=== PATIENT | female | born 1945 | race Caucasian/White ===

== ENCOUNTER 2025-02-28 10:01 | Emergency (ER) | payer MEDICARE, SELFPAY ==
--- NOTE | ~2025-02-28 | XR_ITS ---
EXAMINATION: XR chest 2V DATE: 02/28/2025 10:42 INDICATION: One week of cough TECHNIQUE: PA and lateral views of the chest were obtained. COMPARISON: None FINDINGS: The lungs are clear with no focal airspace opacities, pulmonary edema, pleural effusion or pneumothor ax. The cardiomediastinal silhouette is normal. Mild thoracic spondylosis. IMPRESSION: 1. No acute cardiopulmonary disease. Reviewed, dictated and finalized at location A.
[2025-02-28 10:04] VITALS: BP 166/79; PULSE 80; RESP 16; TEMP 36.9; O2SAT 98
--- OUTSIDE RECORDS SUMMARY | 2025-02-28 10:08 | XMS_ITS | Continuity of Care Document ---
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 Name Role Phone Sandoval Velazquez MD Unavailable Unavailable Allergies, Adverse Reactions, Alerts Substance Reaction Status Criticality cefdinir Active No Information prednisone Active No Information levothyroxine Active No Information PENICILLIN Active No Information clindamycin Active No Information Sulfa (Sulfonamide Antibiotics) Active No Information trimethoprim Active No Information sulfamethoxazole Active No Informat ion Medications Medication Instructions Dosage Effective Dates (start - stop) Status Comments Tirosint 100 mcg capsule take 1 capsule by oral route every day 100 MCG - Active irbesartan 150 mg tablet take 1 tablet by oral route every day 150 MG - Active multivitamin tablet take 1 tablet by ora l route every day 1 tablet - Active Calcium 600 600 mg calcium (1,500 mg) tablet take 1 capsule by oral route 2 times every day 1 capsule - Active omeprazole 40 mg capsule,delayed release take 1 capsule by oral route every day before a meal 40 MG - Active Procedures Procedure Date No Charge Optomap Fundus Photos 022 No Charge Refraction SCODI, Retina Eye Exam & Treatment No Charge Optomap Fundus Photos 021 SCODI, Retina Eye Exam & Treatment Fundus Photography W/ Report No Charge Refraction Eye Exam, New Patient Advance Directives Directive Yes / No Effective Date File Name No Information Encounters Encounter Description Practice Location Reason(s) For Visit Diagnoses Date Provider Providers Copied on Encounter [facility], [address], [place], [place], [id number], [place] tel:[phone] [place] Professional Complete Exam (chief complaint) Age-related nuclear cataract, bilateralEpire tinal membrane (ERM) of right eyeEndothelial corneal dystrophy, right eye Sep-2 2 Velazquez Sandoval. [address], [place], [place], [address], [place]. tel:[phone] Shine Welsh MD.Referri ng Provider: Shine Welsh MD P, [address] [place] [address], [address] . tel:[phone] [facility], [address], [place], [place], [address], [place] tel:[phone] [place] Professional Complete Exam (chief complaint) Epiretinal membrane (ERM) of right eyeAge-related nuclear cataract, bilateralEndot helial corneal dystrophy, right eye Sep-2 1 Marcus Nick. [address], [place], [place], [address], [place]. tel:[phone] Shine Welsh MD.Referri ng Provider: Shine Welsh MD P, [address] [place] [address], [address] . tel:[phone] [facility], [address], [place], [place], [address], [place] tel:[phone] [place] Professional MANAGER PROCUREMENT Complete Exam (chief complaint) Age-related nuclear cataract, bilateralEpire tinal membrane (ERM) of right eyeMacular pseudohole of right eye Sep-1 0 Velazquez Sandoval. [address], [place], [place], [address], [place]. tel:[phone] Specialist : Shine Welsh MD, [address] [place] [address], [address] . tel:[phone] erring Provider: Shine Welsh MD P, [address] [place], [address] . tel:[phone] [facility], [address], [place], [place], [address], tel:[phone] SEC Ori Jansen No Information 0 Marcus Nick. [address] [facility], [address], [place], [place], [address], [place]. tel:[phone] Specialist : Shine Welsh MD, [address] [place], [address] . tel:[phone] Family History Family Member Type Diagnosis Age At Onset Problem Family history of Diabetes m chidi Payers Payer name Insurance type Covered alliance party ID Authorrandy reillymelissa(s) [facility] Mdcr Adv CI [id number] Social History Type Description Quantity Date Captured Comments Alcohol Use Details Caffeine Use Details Tobacco Use Status Current non-smoker Smoking Status Never smoker Non-Smoking Tobacco Use Details : No Details Available : No Details Available Sex Female Chief Complaint And Reason For Visit From encounter dated '07/04/2022 10:30'. Complete Exam (chief complaint). Description: The 76 year old patient presents for a complete exam ou. Monitoring cataracts ou and ERM w/mac pseudohole OD. Patient sees Dr. Welsh every year and seenhim in February 2022. Patient states she goes to [place] for the winter. Patient has a hard time seeing road signs. Patient thinks she wants to wait until Spring for CE. Patient is just unsure. Reason For Referral Reason For Referral No Information Plan Of Treatment Date Type Action Status Patient Education The Eye: Anatomy Sketch completed Patient Education Cataracts: Care Instruc tions completed Patient Education Cataracts: Care Instruc tions completed History Of Present Illness Encounter Date Complaint History Of Prese nt Illness Complete Exam The 76 year old patient presents for a complete exam ou. Monitoring cataracts ou and ERM w/mac pseudohole OD. Patient sees Dr. Welsh every year and seen him in February 2022. Patient states she goes to [place] for the winter. Patient has a hard time seeing road signs. Patient thinks she wants to wait until Spring for CE. Patient is just unsure. Complete Exam The 75 year old female presents for evaluation of Complete Exam in the right eye and left eye. Hx of ERM w/Mac pseudohole OD. Patient states awhile back when she woke up from sleeping her left eye was stuck to her eyeball . Patient states she still sees humps under letters with the right eye. Patient using Systane prn OU. Patient seen Dr. Welsh yesterday. MANAGER PROCUREMENT Complete Exam The 74 year old female presents for evaluation of MANAGER PROCUREMENT Complete Exam in the right eye and left eye. Hx Cataract OU. Pt reports trouble seeing the computer in her current progressive lenses. Pt uses Naphcon A prn OU. Pt would like a new MRx today. Pt was followed by Dr. Welsh before she moved here for possible VMT. Functional Status Date Functional Assessmen t No Information Instructions Date Instruction Additional Infor brielle Impression/Plan Impression/Plan Impression/Plan Assessments Type Assessment Date assessment Age-related nuclear cataract, bi lateral assessment Epiretinal membrane (ERM) of rig ht eye assessment Endothelial corneal dystrophy, r ight eye Patient Care Teams Name Effective Dates (start - stop) Status Members No Information
--- OUTSIDE RECORDS SUMMARY | 2025-02-28 10:09 | XMS_ITS | Clinical Summary ---
Author Organization [facility] Address [address] [place] [address] Care Team Providers Care Machine Mover Name Role Phone Dillon Nunez MD Primary Care Provide r Source Comments [facility],non-owned Affiliates and Associated Physician Practices is amultiple site organization consisting of ambulatory clinics and hospital sitesin [place], [place], [place] and [place]. This disclosure is being madepursuant to the Care Everywhere program and may not contain all information available regarding this patient. Last updated 18.[facility] Allergies Active Allergy Reactions Criticality Noted Date Comments Sulfamethoxazole W-Trimethoprim 06/08 Clindamycin 06/20/2017 Levofloxacin 06/20/2017 Penicillins 06/20/2017 Prednisone 06/20/2017 Sulfa Drugs 06/20/2017 Medications * Be aware that medications may not be up to date on this document. Alwaysverify current medications with the patient. levothyroxine (SYNTHROID) 75 MCG tablet Take 100 mcg by mouth daily before breakfast Active valsartan (DIOVAN) 160 MG tablet Take 160 mg by mouth once daily Active aspirin (ASPIRIN) 81 MG chew tablet Take 81 mg by mouth once daily Active omeprazole (PRILOSEC) 40 MG capsule Take 40 mg by mouth daily before breakfast Active irbesartan (AVAPRO) 150 MG tablet Take 150 mg by mouth once daily Active valACYclovir (VALTREX) 1 GM tablet Take 1,000 mg by mouth every 12 hours Active diclofenac sodium EC (VOLTAREN) 50 MG tablet Take 50 mg by mouth 2 times daily Active Active Problems Problem Noted Date Diagnosed Date Right knee pain 06/20/2017 Social History Tobacco Use Types Packs/Day Years Used Date Smoking Tobacco: Never Assessed Comments Unknown Sex and Gender Information Value Date Recorded Sex Assigned at Not on file 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 Gender Identity Not on file Sexual Orientation Not on file Plan of Treatment Health Maintenance Due Date Last Done Comments BONE DENSITY TESTING 1945 DTAP/TDAP/TD VACCINES (1 - Tdap) 1964 PNEUMOCOCCAL VACCINE 50+ (1 of 1 - PCV) 1995 ZOSTER VACCINE (1 of 2) 1995 Respiratory Syncytial Virus (RSV) Vaccine Pt: or over 60 yrs (1 - 1-dose 75+ series) 2020 COVID-19 VACCINE (1 - season) 2024 DEPRESSION SCREENING 10/08/2024 INFLUENZA VACCINE (Season Ended) 2025 08/04/2019, 09/22/2016, 07/16/2014, Additional history exists HEPATITIS B VACCINE Aged Out No longe r eligible based on patient's age to complete this topic HIB VACCINE Aged Out No longer eligi ble based on patient's age to complete this topic HPV VACCINE Aged Out No longer eligi ble based on patient's age to complete this topic MENINGOCOCCAL (Group B) VACCINE SHARED DECISION-MAKING Aged Out No longer eligible based on patient's age to complete this topic MENINGOCOCCAL GROUPS A/C/Y/W VACCINE Aged Out No longer eligible based on patient's age to complete this topic Insurance MANAGED MEDICARE ADV Care Teams Machine Mover Relationship Specialty Start Date End Date Dillon Nunez MD [address] [place] [address] PCP - General Pediatrics 06/20/17
--- OUTSIDE RECORDS SUMMARY | 2025-02-28 10:09 | XMS_ITS | Clinical Summary ---
Author Organization [facility] Address [address] [place] [id number] Care Team Providers Care Pool Attendant Name Role Phone Shine Redd MD Primary Care Provider [phone] Dillon Wang MD Unavailable [phone] Beltran Oliva MD Unavailable [phone] Allergies Active Allergy Reactions Criticality Noted Date Comments Azithromycin Rash Medium 01/12/2017 Cefdinir Diarrhea Low 09/02/2019 Clindamycin Rash Medium 01/12/2017 Levofloxacin Rash Medium 01/12/2017 Penicillins Rash Medium 01/12/2017 Prednisone Rash Medium 06/20/2017 Sulfa (Sulfonamide Antibiotics) Rash Medium 06/08 Sulfamethoxazole-Trimethoprim Rash Medium 2016 Medications multivitamin tablet,chewable Take by mouth Active aspirin 81 mg enteric coated tablet Take 1 tablet (81 mg total) by mouth daily 90 tablet 3 2 Active bran/gum/fib/ce l/psyl/kelp/pec (FIBER 6 ORAL) Take by mouth A ctive famotidine-Ca carb-mag hydrox (PEPCID COMPLETE) 10-800-165 mg chewable tablet Take 1 tablet by mouth daily as needed for heartburn Active calcium carbonate-vitam in D3 1,500 mg (600 mg elemental)-1,00 0 unit capsule Take by mouth daily Active ascorbic acid/collagen hydr (COLLAGEN SKIN RENEWAL ORAL) Take by mouth daily Active docusate sodium (COLACE) 100 mg capsuleIndicati ons:constipatio n Take 1 capsule (100 mg total) by mouth 2 (two) times a day with a glass of water 20 capsule 3 Active levothyroxine (SYNTHROID) 100 mcg tablet TAKE 1 TABLET BY MOUTH EVERY MORNING BEFORE BREAKFAST 90 tablet 3 4 Active losartan (COZAAR) 50 mg tablet Take 1 tablet (50 mg total) by mouth daily 90 tablet 4 5 10/28/19 26 Active Active Problems Problem Noted Date Diagnosed Date Medicare annual wellness visit, subsequent 09/26 Assessment & Plan (09/26/2024 10:40 AM WELDING MANAGER): In regard to health maintenance, Mammogram- declined DEXA- UTD Influenza vaccine- given at appointment Pneumococcal vaccine- UTD Shingrix vaccine- declined ASCVD risk: 32.4% Eat a healthy diet: focus on lean meats and proteins, more fruits, vegetables and whole grains and low in sugars and fats. Limit red meat and avoid processed meat. Maintain a healthy weight; avoid being overweight. Aim for a normal body mass index (BMI) of 18.5-24.9. Help learning to eat healthier, we can set up appointment with director of sustainable design/supervisor game farm. Have an active lifestyle, strive for 30 minutes of moderate exercise 5 times a week and strength or resistance training at least twice a week. Use broad-spectrum (UVA+UVB) sunscreen with SPF 30 or greater, is water resistant, limit time spent in the sun (10 am-4pm), wear hat, wear UV protective clothing, wear sunglasses. Never use a tanning bed. Skin that was irradiated may be more sensitive over your lifetime. Limit alcohol intake, 1 drink per day for a woman and 2 drinks per day for a man. BMI 27.0-27.9,adult 09/26/2024 Assessment & Plan (09/26/2024 10:39 AM WELDING MANAGER): Weight appropriate for patient. Need for immunization against influenza 09/26/20 Assessment & Plan (09/26/2024 10:40 AM WELDING MANAGER): Flu vaccine given at appointment. Varicose veins of left lower extremity with pain 07/26/2022 Assessment & Plan (03/24/2024 4:29 PM CDT): Stable, improved; no current symptoms except for cosmetic Will continue to monitor Assessment & Plan (10/16/2023 3:40 PM WELDING MANAGER): Has improvement since coagulation; decreased pain and swelling in left leg Will continue to monitor, encourage use of compression stockings as needed Assessment & Plan (03/30/2023 10:02 AM CDT): Completed treatment; has some tearing higher up but no edema in left leg Continue to monitor Assessment & Plan (02/20/2023 7:52 AM CDT): Status post EVLT and stab phlebectomies, doing well since her procedure. Her phlebectomy sites are healing nicely. Continue p.r.n. compression therapy. Can follow-up as needed. Assessment & Plan (10/05/2022 12:05 PM WELDING MANAGER): Impression: Patient continues to complain of left lower extremity pain and edema with prolonged standing despite compression therapy. Venous reflux reveals significant reflux to bilateral great saphenous femoral junction. Plan: Recommend left lower extremity EVLT with stab phlebectomies. Risks of the procedure communicate with patient to include infection, bleeding, laser burn injury, DVT, or needing further surgery. Patient understands these risks and wishes to proceed. Recommend patient to continue utilizing compression stockings. Assessment & Plan (09/13/2022 11:09 AM WELDING MANAGER): Left lower extremity CEAP C3 disease symptomatic varicosities I discussed the importance of compression therapy. We will follow up in 1 2 weeks with left lower extremity reflux miner assistant, pending this she is likely going to need a GSV ablation stab phlebectomies. Assessment & Plan (07/26/2022 5:04 PM CDT): Stable, not well controlled; has symptoms including swelling and pain associated with vein in left leg; using compression stocks Continue with compression stockings, referral to vascular surgery for symptomatic varicose vein Family history of colon cancer in father 021 History of colon polyps 10/12/2020 Prediabetes 10/12/2020 Assessment & Plan (09/26/2024 10:39 AM WELDING MANAGER): CMP and A1C ordered. Will continue to monitor. Assessment & Plan (03/30/2023 10:02 AM CDT): Last CMP, serum glucose was 101; no major issues Encouraged continued low-carbohydrate diet; limiting carbohydrates to 30 to 45 g per meal Elevated LFTs 09/22/2019 Osteoarthritis of multiple joints 09/22/2019 Assessment & Plan (03/24/2024 4:28 PM CDT): Not well controlled, worsening pain impacting sleep; worse when being knee for extended duration Worse sandals, can not straighten [place] Has decreased range of motion Continue to follow with Orthopedic surgery for evaluation and treatment options Assessment & Plan (10/16/2023 3:41 PM WELDING MANAGER): Continues to have pain; mostly knees and lower back; follows with lawn caretaker for management Assessment & Plan (03/30/2023 10:03 AM CDT): Generally well controlled, can perform most major activities, including caring for long caring for grandchild Continue to encourage regular general activity; ibuprofen and Tylenol p.r.n. for pain Hemorrhoids 09/30/2018 Assessment & Plan (03/30/2023 10:04 AM CDT): Not well controlled, has bleeding; symptoms have been present for several years, requires pad every 24 hours changes pen often Pain with sitting Refer to general surgery for evaluation Assessment & Plan (07/26/2022 5:05 PM CDT): Not well controlled, has regular bleeding and secretions; requiring pads all the time Has increased fiber intake, symptoms of present for several years but progressing, patient reports no significant constipation with regular bowel movements Continue with high-fiber diet; will refer to general surgery if no improvement in symptoms Mixed hyperlipidemia 09/30/2018 Assessment & Plan (09/26/2024 10:38 AM WELDING MANAGER): Lipid panel ordered. Will continue to monitor. Stable and well controlled. Continue high-fiber and low-fat diet. Assessment & Plan (03/24/2024 4:28 PM CDT): Stable, well controlled, last lipids and optimal ranges; continue high-fiber low-fat diet Assessment & Plan (10/16/2023 3:41 PM WELDING MANAGER): Stable, well controlled; lipids and optimal range Encourage low-fat high-fiber diet Assessment & Plan (03/30/2023 10:06 AM CDT): Stable, well controlled; no major issues ASCVD risk score is 35.1%; would consider starting statin therapy if remains elevated Continue to monitor encourage low-fat high-fiber diet Assessment & Plan (10/05/2022 12:06 PM WELDING MANAGER): Impression: Chronic hyperlipidemia, controlled with statin therapy. Plan: Continue statin therapy as per primary care provider. Assessment & Plan (09/13/2022 11:09 AM WELDING MANAGER): Recommend statin therapy Assessment & Plan (07/26/2022 5:03 PM CDT): Elevated total cholesterol with near optimal LDL Continue to monitor, encourage low-fat high-fiber diet Gastroesophageal reflux disease without esophagi tis 04/03/2016 Overview (07/17/2022): Gastro-esophageal reflux disease without esophagitis Assessment & Plan (09/26/2024 10:38 AM WELDING MANAGER): Stable and well controlled. Will continue on Pepcid complete. Will continue to monitor. Assessment & Plan (10/16/2023 3:40 PM WELDING MANAGER): Continues to have some symptoms; takes Pepcid for several weeks Continue Pepcid complete p.r.n. for symptoms Assessment & Plan (03/30/2023 10:04 AM CDT): Stable, well controlled, takes Pepcid every night with good relief Continue famotidine 10 mg daily Benign essential hypertension 02/23/2012 Overview (07/17/2022): Benign essential hypertension Assessment & Plan (09/26/2024 10:37 AM WELDING MANAGER): Blood pressure stable and well controlled. Will continue on Irbesartan. Will continue to monitor. Assessment & Plan (03/24/2024 4:28 PM CDT): Stable, well controlled, blood pressure at goal; no chest pain or pressure Orthostatics Continue irbesartan 150 mg daily Assessment & Plan (10/16/2023 3:40 PM WELDING MANAGER): Stable, well controlled; patient blood pressure mildly elevated today Continue irbesartan 150 mg nightly Assessment & Plan (03/30/2023 10:06 AM CDT): Stable, blood pressure at goal today at 124/76 Patient reports no chest pain headaches Continue irbesartan 150 mg nightly Assessment & Plan (10/05/2022 12:06 PM WELDING MANAGER): Impression: Chronic hypertension, controlled medications. Plan: Continue blood pressure management as per primary care provider. Assessment & Plan (09/13/2022 11:09 AM WELDING MANAGER): Avapro Assessment & Plan (07/26/2022 5:02 PM CDT): Stable, well controlled; blood pressure at target no chest pain or orthostatics Continue irbesartan 150 mg daily Hypothyroidism 02/23/2012 Overview (07/17/2022): Unspecified hypothyroidism Assessment & Plan (09/26/2024 10:38 AM WELDING MANAGER): Euthyroid. Will recheck TSH and T4. Will continue on Synthroid. Will continue to monitor. Assessment & Plan (03/24/2024 4:28 PM CDT): Last CBC within normal limits; no changes to weight or energy levels Continue levothyroxine 100 mcg daily Assessment & Plan (10/16/2023 3:41 PM WELDING MANAGER): Stable, well controlled; TSH within normal limits, appropriate weight and energy levels Continue levothyroxine 100 mcg daily Assessment & Plan (03/30/2023 10:03 AM CDT): TSH mildly elevated but T4 at target; has felt more tired recently, but patient reports she is also more active and more busy Continue levothyroxine 100 mcg daily; continue to monitor closely Assessment & Plan (07/26/2022 5:03 PM CDT): Stable, well controlled; TSH at target, no loss of energy levels, or unexplained weight loss or weight gain Continue levothyroxine 100 mcg daily Immunizations Immunization Administration Dates Next Due Influenza, Quad, Adjuvantate d, Intramuscular 08/11/2021 Influenza, Quadrivalent, Hig h Dose, Preservative Free, Intrr 09/19/2023,07/17/2022,06/29/2020,07/09 Influenza, Quadrivalent, Spl it, Preservative Free, Intramuscular 09/22/2016 Influenza, Trivalent, Adjuva nted, Intramuscular 08/07/2018 Influenza, Trivalent, High D ose, Split, Preservative Free, Intramuscular 09/26/2024,07/22/2019,07/09/2017,08/04 Influenza, Trivalent, IM (MDV) 07/16/2014 Influenza, Unspecified 07/14/2022(Deferr ed: Patient Refused),08/11/2021,06/29/2020, 019,07/16/2014,09/24/2013 LimeTray (J&J) SARS-CoV-2 Vaccination 12/22/2020, 12/16/2020 Pneumococcal Conjugate Pcv20 03/20/2024 Pneumococcal Polysaccharide PPV23 09/24/2013 Tdap 11/07/2017 Surgical History Surgery Date Site/Laterality Comments KNEE ARTHROSCOPY Right VARICOSE VEIN SURGERY Left HYSTEROSCOPY HEMORRHOID SURGERY [facility] Medical History Medical History Date Comments Arthritis Hypertension Osteoporosis Pneumonia Thyroid disease Urinary tract infection Seasonal allergies GERD (gastroesophageal reflux disease) Family History Medical History Relation Name Comments Cancer Brother Stroke Daughter Heart disease Father Arthritis Mother Cancer Mother Diabetes Mother Stroke Mother Relation Name Status Comments Brother Daughter Father Mother Social History Tobacco Use Types Packs/Day Years Used Date Smoking Tobacco: Never Smokeless Tobacco: Never Tobacco Cessation:Counseling Given: Not Answered Alcohol Use Standard Drinks/Week Comments Yes 0 (1 standard drink = 0.6 oz pur e alcohol) frequently AUDIT-C Answer Date Recorded Q1: How often do you have a drink containing alc ohol? Monthly or less 05/07/2023 Average Number of Drinks Not on file 023 Frequency of Binge Drinking Not on file 04/09 PHQ-2 Answer Date Recorded PHQ-2 Total Score (If total score is 3 or more points, staff should administer the PHQ-9) 0 09/26/2024 Personal Safety Answer Date Recorded Have you ever been in or are you currently in a harmful physical or emotional relationship or is someone making you feel afraid or unsafe? Denies 05/07/2023 Comments No Sex and Gender Information Value Date Recorded Sex Assigned at Not on file Legal Sex Female 8:09 PM WELDING MANAGER Gender Identity Not on file Sexual Orientation Not on file Obstetrics History Last Filed Vital Signs Vital Sign Reading Time Taken Comments Blood Pressure 114/72 09/26/2024 10:20 AM WELDING MANAGER Pulse 71 09/26/2024 10:20 AM WELDING MANAGER Temperature 36.7 C (98 F) 09/26/2024 10:20 AM WELDING MANAGER Respiratory Rate 18 09/26/2024 10:20 AM WELDING MANAGER Oxygen Saturation 98% 09/26/2024 10:20 AM WELDING MANAGER Inhaled Oxygen Concentration - - Weight 76.3 kg (168 lb 3.2 oz) 09/26/2024 10:20 AM WELDING MANAGER Height 165.1 cm (5' 5 ) 09/26/2024 10:20 AM WELDING MANAGER Body Mass Index 27.99 09/26/2024 10:20 AM WELDING MANAGER Plan of Treatment Health Maintenance Due Date Last Done Comments Zoster Vaccine (1 of 2) 1995 Covid-19 Vaccine (2023- 5 season) 2024 12/22/2020, 12/16/2020 Osteoporosis Screening-Bone Density Scan 12/19/2024 12/19/2022 Depression Screening 09/26/2025 09/26/2024, 03/20/2024, 09/12/2023, Additional history exists Fall Risk Assessment 09/26/2025 09/26/2024, 03/20/2024, 09/12/2023, Additional history exists Well Visit 65+ 09/26/2025 09/26/2024, 09/12/2023 DTaP/Tdap/Td Vaccine (2 - Td or Tdap) 11/07/2027 11/07/2017 Breast Cancer Screening-Mammogram Discontinued 019, 09/25/2013 Hepatitis C Screening Completed 07/17/2022 Hepatitis B Screening Completed 03/20/2024 Pneumococcal vaccine 65+ Completed 03/20/2024, 09/07 Influenza Vaccine Completed 09/26/2024, , 07/17/2022, Additional history exists Procedures Procedure Name Priority Date/Time Associated Diagnosis Comments DEXA AXIAL SKELETON BONE DENSITY 1 OR MORE SITES Schedule Routine, Read Routine (OP Routine) 12/19/2022 10:28 AM CDT Osteoporosis screening Age-related osteoporosis without current pathological fracture HEPATITIS C ANTIBODY Routine 07/17/2022 10:04 AM CDT Encounter for hepatitis C screening test for low risk patient SCREENING MAMMOGRAM Routine 09/25/2013 9:07 AM WELDING MANAGER from Last 3 Months or Most Recently Relevant to Health Maintenance Results * Dexa Axial Skeleton Bone Density 1 Or 2 Site (12/19/2022 10:28 AM CDT) Anatomical Region Laterality Modality Body N/A Other 12/20/2022 6:48 AM CDT Narrative 12/20/2022 6:49 AM CDT EXAM DESCRIPTION: DEXA AXIAL SKELETON BONE DENSITY 1 OR MORE SITES REASON FOR STUDY: 77 y/o year old F with given history of screening. Postmenopausal Tram Inspector/Model: Nitch SL ([id number]/N [id number]) CLINICAL INFORMATION: Current height: 65 inches Maximum height: 66 inches Weight: 166 pounds Risk factors: Postmenopausal COMPARISON: None available FINDINGS: AP LUMBAR SPINE L1-L4: Total BMD is 1.098 g/cm2 T-score is 0.5 LEFT HIP: Total BMD is 0.891 g/cm2 T-score is -0.4 Femoral neck BMD is 0.662 g/cm2 T-score is -1.7 FRAX: 10 year risk for a major osteoporotic fracture is 13 %, 10 year risk for a hip fracture is 2.9 % IMPRESSION: Based on the left femoral neck bone mineral density (T-score -1.7 ) the patient has low bone mass . REFERENCE: Bone mineral density: Normal (T-score above or = -1.0) Low bone mass (T-score between -1.0 and -2.5) replaces the previously used term osteopenia Osteoporosis (T-score = or below -2.5) Medical evaluation for secondary causes of low bone mineral density may be appropriate. FRAX is a World Health Organization validated fracture risk assessment tool that calculates a person's 10 year probability of a major osteoporosis related fracture and hip fracture. According to the National Osteoporosis Foundation guidelines, postmenopausal women and men age 50 or older with low bone mass and a 10 year probability of a major osteoporosis related fracture = or greater than 20% or a 10 year probability of a hip fracture = or greater than 3% should be considered for treatment. For further information, including treatment recommendations, please refer to the 2013 ISCD Official Positions (http://www.iscd.org) and the NOF's Clinician's Guide to Prevention and Treatment of Osteoporosis (http://www.nof.org/professionals/clinical-guidelines) THIS IS AN ELECTRONICALLY VERIFIED FINAL REPORT 12/20/2022 6:49 AM - Electronically signed by Ilya Rivera M.D. MF: CELIA Report ID: [id number] Reading Location: [id number] [facility] Note Ilya Rivera MD - 12/20/2022 EXAM DESCRIPTION: DEXA AXIAL SKELETON BONE DENSITY 1 OR MORE SITES REASON FOR STUDY: 77 y/o year old F with given history of screening. Postmenopausal Tram Inspector/Model: Nitch SL ([id number]/N [id number]) CLINICAL INFORMATION: Current height: 65 inches Maximum height: 66 inches Weight: 166 pounds Risk factors: Postmenopausal COMPARISON: None available FINDINGS: AP LUMBAR SPINE L1-L4: Total BMD is 1.098 g/cm2 T-score is 0.5 LEFT HIP: Total BMD is 0.891 g/cm2 T-score is -0.4 Femoral neck BMD is 0.662 g/cm2 T-score is -1.7 FRAX: 10 year risk for a major osteoporotic fracture is 13 %, 10 year risk for ahip fracture is 2.9 % IMPRESSION: Based on the left femoral neck bone mineral density (T-score -1.7 ) the patient has low bone mass . REFERENCE: Bone mineral density: Normal (T-score above or = -1.0) Low bone mass (T-score between -1.0 and -2.5) replaces thepreviously used term osteopenia Osteoporosis (T-score = or below -2.5) Medical evaluation for secondary causes of low bone mineral density may be appropriate. FRAX is a World Health Organization validated fracture risk assessmenttool that calculates a person's 10 year probability of a major osteoporosisrelated fracture and hip fracture. According to the National OsteoporosisFoundation guidelines, postmenopausal women and men age 50 or older with low bonemass and a 10 year probability of a major osteoporosis related fracture = or greater than 20% or a 10 year probability of a hip fracture = or greaterthan 3% should be considered for treatment. For further information, including treatment recommendations, please referto the 2013 ISCD Official Positions (http://www.iscd.org) and the NOF's Clinician's Guide to Prevention and Treatment of Osteoporosis (http://www.nof.org/professionals/clinical-guidelines) THIS IS AN ELECTRONICALLY VERIFIED FINAL REPORT 12/20/2022 6:49 AM - Electronically signed by Ilya Rivera M.D. MF: CELIA Report ID: [id number] Reading Location: [place] [address] Shine Redd MD [facility] DXA PROCEDURES Final Result * Hepatitis C antibody (07/17/2022 10:04 AM CDT) Hep C Ab Nonreactive Nonreactive JAKE KATHARINE Comment: Interpretive Data Nonreactive: Antibodies to HCV not detected. Does NOT exclude the possibility of recent exposure to HCV. Equivocal: Equivocal for HCV antibodies. Supplemental molecular testing will be automatically performed to determine infection status in accordance with current CDC screening recommendations. Reactive: Positive for HCV antibodies. This may represent current or past HCV infection. Supplemental molecular testing will be automatically performed to determine current infection status in accordance with current CDC screening recommendations. Interpretive data was last revised on 2019. Blood 07/17/2022 10:0 4 AM CDT 07/17/2022 3:10 PM CDT us Shine Redd MD LAB MICROBIOLOGY - GENERA L ORDERABLES Final Result JAKE [id number] [address] Department [place] [address] * Screening Mammogram (09/25/2013 9:07 AM WELDING MANAGER) Anatomical Region Laterality Modality Breast N/A Mammography 09/25/2013 9:07 AM WELDING MANAGER Narrative 09/26/2013 1:[address] MANA[address] M.D. FINAL REPORT ACC# Date Time Exam [id number] Sep 25, 2013 09:07:00 BMV [id number] [place] Screening Mamm Technologist(s): Elizabeth Vu; ; EXAMINATION: Mammogram Technique: Bilateral Full-Field Digital Screening Mammogram was performed. Views obtained: bilateral craniocaudal and bilateral mediolateral oblique. Computer Aided Detection was performed with [employer].3 version 9.3. Mammogram Findings: The present examination has been compared to prior imaging studies performed at [facility] on 09/25/2012, 09/28/2011 and 05/05/2010. There are scattered fibroglandular densities. There is no suspicious abnormality in either breast. IMPRESSION: Annual screening mammography is recommended. OVERALL FINAL ASSESSMENT: BI-RADS CATEGORY 1: Negative. Requested By: Diloln Nunez M.D. Dictated By: SLIME LANE M.D. on Sep 26 2013 1:02P This document has been electronically signed by: SLIME LANE M.D. on Sep 26 2013 1:02P Procedure Note Provider, MD Nancy - 01/30/[address] M.D. FINAL REPORT ACC# Date Time Exam [id number] Sep 25, 2013 09:07:00 BMV [id number] [place] Screening Mamm Technologist(s): Elizabeth Vu; ; EXAMINATION: Mammogram Technique: Bilateral Full-Field Digital Screening Mammogram was performed. Views obtained: bilateral craniocaudal and bilateral mediolateral oblique. Computer Aided Detection was performed with [employer].3 version 9.3. Mammogram Findings: The present examination has been compared to prior imaging studies performed at [facility] on09/25/2012, 09/28/2011 and 05/05/2010. There are scattered fibroglandular densities. There is no suspicious abnormality in either breast. IMPRESSION: Annual screening mammography is recommended. OVERALL FINAL ASSESSMENT: BI-RADS CATEGORY 1: Negative. Requested By: Dillon Nunez M.D. Dictated By: SLIME LANE M.D. on Sep 26 2013 1:02P This document has been electronically signed by: SLIME LANE M.D. on Sep 26 2013 1:02P Historical Provider IMG MAMMO PROCEDURES Heidy l Result from Last 3 Months or Most Recently Relevant to Health Maintenance Insurance [employer] MEDICARE [facility] MEDICARE [facility] MEDICARE Care Teams Pool Attendant Relationship Specialty Start Date End Date Shine Redd MD [address] [place] [address] PCP - General Family Medicine 07/17/22 Dillon Wang MD [address] [place] [address] [place] [address] Surgeon General Surgery 04/06/23 Beltran Oliva MD [address] [facility] [address] [address] Consulting Physician Gastroenterology 04/06/23
--- OUTSIDE RECORDS SUMMARY | 2025-02-28 10:09 | XMS_ITS | Referral Summary ---
Author Organization [facility] Address [address] [place] [address] Care Team Providers Care Machine Programmer Name Role Phone Shine Redd MD Primary Care Provider [phone] Dillon Wang MD Unavailable [phone] Beltran Oliva MD Unavailable [phone] Allergies Active Allergy Reactions Criticality Noted [...] 09/26 Assessment & Plan (09/26/2024 10:40 AM CLOTH COLORER): In regard to health maintenance, Mammogram- declined [...] healthier, we can set up appointment with bead forming machine set up operator/software lead. Have an active lifestyle, strive for 30 [...] 09/26/2024 Assessment & Plan (09/26/2024 10:39 AM CLOTH COLORER): Weight appropriate for patient. Need for immunization against influenza 09/26/20 Assessment & Plan (09/26/2024 10:40 AM CLOTH COLORER): Flu vaccine given at appointment. Varicose veins of left lower extremity with pain 07/26/2022 Assessment & Plan (03/24/2024 4:29 PM CDT): Stable, improved; no current symptoms except for cosmetic Will continue to monitor Assessment & Plan (10/16/2023 3:40 PM CLOTH COLORER): Has improvement since coagulation; decreased pain and [...] needed. Assessment & Plan (10/05/2022 12:05 PM CLOTH COLORER): Impression: Patient continues to complain of left [...] stockings. 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 We will follow up in 1 2 weeks with left lower extremity reflux facility service associate, pending this she is likely going to [...] 10/12/2020 Assessment & Plan (09/26/2024 10:39 AM CLOTH COLORER): CMP and A1C ordered. Will continue to [...] options Assessment & Plan (10/16/2023 3:41 PM CLOTH COLORER): Continues to have pain; mostly knees and lower back; follows with acute care registered nurse for management Assessment & Plan (03/30/2023 10:03 [...] 09/30/2018 Assessment & Plan (09/26/2024 10:38 AM CLOTH COLORER): Lipid panel ordered. Will continue to monitor. Stable and well controlled. Continue high-fiber and low-fat diet. Assessment & Plan (03/24/2024 4:28 PM CDT): Stable, well controlled, last lipids and optimal ranges; continue high-fiber low-fat diet Assessment & Plan (10/16/2023 3:41 PM CLOTH COLORER): Stable, well controlled; lipids and optimal range Encourage low-fat high-fiber diet Assessment & Plan (03/30/2023 10:06 AM CDT): Stable, well controlled; no major issues ASCVD risk score is 35.1%; would consider starting statin therapy if remains elevated Continue to monitor encourage low-fat high-fiber diet Assessment & Plan (10/05/2022 12:06 PM CLOTH COLORER): Impression: Chronic hyperlipidemia, controlled with statin therapy. Plan: Continue statin therapy as per primary care provider. Assessment & Plan (09/13/2022 11:09 AM CLOTH COLORER): Recommend statin therapy Assessment & Plan (07/26/2022 5:03 PM CDT): Elevated total cholesterol with near optimal LDL Continue to monitor, encourage low-fat high-fiber diet Gastroesophageal reflux disease without esophagi tis 04/03/2016 Overview (07/17/2022): Gastro-esophageal reflux disease without esophagitis Assessment & Plan (09/26/2024 10:38 AM CLOTH COLORER): Stable and well controlled. Will continue on Pepcid complete. Will continue to monitor. Assessment & Plan (10/16/2023 3:40 PM CLOTH COLORER): Continues to have some symptoms; takes Pepcid for several weeks Continue Pepcid complete p.r.n. for symptoms Assessment & Plan (03/30/2023 10:04 AM CDT): Stable, well controlled, takes Pepcid every night with good relief Continue famotidine 10 mg daily Benign essential hypertension 02/23/2012 Overview (07/17/2022): Benign essential hypertension Assessment & Plan (09/26/2024 10:37 AM CLOTH COLORER): Blood pressure stable and well controlled. Will continue on Irbesartan. Will continue to monitor. Assessment & Plan (03/24/2024 4:28 PM CDT): Stable, well controlled, blood pressure at goal; no chest pain or pressure Orthostatics Continue irbesartan 150 mg daily Assessment & Plan (10/16/2023 3:40 PM CLOTH COLORER): Stable, well controlled; patient blood pressure mildly elevated today Continue irbesartan 150 mg nightly Assessment & Plan (03/30/2023 10:06 AM CDT): Stable, blood pressure at goal today at 124/76 Patient reports no chest pain headaches Continue irbesartan 150 mg nightly Assessment & Plan (10/05/2022 12:06 PM CLOTH COLORER): Impression: Chronic hypertension, controlled medications. Plan: Continue blood pressure management as per primary care provider. Assessment & Plan (09/13/2022 11:09 AM CLOTH COLORER): Avapro Assessment & Plan (07/26/2022 5:02 PM CDT): Stable, well controlled; blood pressure at target no chest pain or orthostatics Continue irbesartan 150 mg daily Hypothyroidism 02/23/2012 Overview (07/17/2022): Unspecified hypothyroidism Assessment & Plan (09/26/2024 10:38 AM CLOTH COLORER): Euthyroid. Will recheck TSH and T4. Will continue on Synthroid. Will continue to monitor. Assessment & Plan (03/24/2024 4:28 PM CDT): Last CBC within normal limits; no changes to weight or energy levels Continue levothyroxine 100 mcg daily Assessment & Plan (10/16/2023 3:41 PM CLOTH COLORER): Stable, well controlled; TSH within normal limits, [...] Influenza, Unspecified 07/14/2022(Deferr ed: Patient Refused),08/11/2021,06/29/2020, 019,07/16/2014,09/24/2013 [employer] ([employer]) SARS-CoV-2 Vaccination 12/22/2020, 12/16/2020 Pneumococcal Conjugate Pcv20 03/20/2024 Pneumococcal Polysaccharide PPV23 09/24/2013 Tdap 11/07/2017 Social History Tobacco Use Types Packs/Day Years [...] on file Legal Sex Female 8:09 PM CLOTH COLORER Gender Identity Not on file Sexual Orientation Not on file Last Filed Vital Signs Vital Sign Reading Time Taken Comments Blood Pressure 114/72 09/26/2024 10:20 AM CLOTH COLORER Pulse 71 09/26/2024 10:20 AM CLOTH COLORER Temperature 36.7 C (98 F) 09/26/2024 10:20 AM CLOTH COLORER Respiratory Rate 18 09/26/2024 10:20 AM CLOTH COLORER Oxygen Saturation 98% 09/26/2024 10:20 AM CLOTH COLORER Inhaled Oxygen Concentration - - Weight 76.3 kg (168 lb 3.2 oz) 09/26/2024 10:20 AM CLOTH COLORER Height 165.1 cm (5' 5 ) 09/26/2024 10:20 AM CLOTH COLORER Body Mass Index 27.99 09/26/2024 10:20 AM CLOTH COLORER Plan of Treatment Not on file Procedures Procedure Name Priority Date/Time Associated Diagnosis Comments DEXA AXIAL SKELETON BONE DENSITY 1 OR MORE SITES Schedule Routine, Read Routine (OP Routine) 12/19/2022 10:28 AM CDT Osteoporosis screening Age-related osteoporosis without current pathological fracture HEPATITIS C ANTIBODY Routine 07/17/2022 10:04 AM CDT Encounter for hepatitis C screening test for low risk patient SCREENING MAMMOGRAM Routine 09/25/2013 9:07 AM CLOTH COLORER from Last 3 Months or Most Recently [...] F with given history of screening. Postmenopausal Investment Director/Model: Macromill SL (S/N [id number]) CLINICAL INFORMATION: Current height: 65 inches Maximum [...] Ilya Rivera M.D. MF: CELIA Report ID: [id number] Reading Location: [place] [address] Procedure Note Ilya Rivera MD - 12/20/2022 EXAM DESCRIPTION: DEXA AXIAL SKELETON BONE DENSITY 1 OR MORE SITES REASON FOR STUDY: 77 y/o year old F with given history of screening. Postmenopausal Investment Director/Model: Macromill SL (S/N [id number]) CLINICAL INFORMATION: Current height: 65 inches Maximum [...] Ilya Rivera M.D. MF: CELIA Report ID: [id number] Reading Location: [place] [address] Shine Redd MD IMG DXA PROCEDURES Final Result * Hepatitis C antibody (07/17/2022 10:04 AM CDT) Hep C Ab Nonreactive Nonreactive JAKE ALCANTAR Comment: Interpretive Data Nonreactive: Antibodies to HCV [...] 4 AM CDT 07/17/2022 3:10 PM CDT Shine Redd MD LAB MICROBIOLOGY - GENERA L ORDERABLES Final Result Performing Organization Address City/State/[facility] Co de Phone Number JAKE [phone] [address] Department [place] [address] * Screening Mammogram (09/25/2013 9:07 AM CLOTH COLORER) Anatomical Region Laterality Modality Breast N/A Mammography 09/25/2013 9:07 AM CLOTH COLORER Narrative 09/26/2013 1:[address] M.D. FINAL REPORT ACC# Date Time Exam [id number] Sep 25, 2013 09:07:00 BMV [id number] Mario Screening Mamm Technologist(s): Elizabeth Vu; ; EXAMINATION: Mammogram Technique: Bilateral Full-Field Digital Screening Mammogram was performed. Views obtained: bilateral craniocaudal and bilateral mediolateral oblique. Computer Aided Detection was performed with [employer] 1.3 version 9.3. Mammogram Findings: The present examination has been compared to prior imaging studies performed at [facility] on 09/25/2012, 09/28/2011 and [...] M.D. FINAL REPORT ACC# Date Time Exam [id number] Sep 25, 2013 09:07:00 BMV [id number] Mario Screening Mamm Technologist(s): Elizabeth Vu; ; EXAMINATION: Mammogram Technique: Bilateral Full-Field Digital Screening Mammogram was performed. Views obtained: bilateral craniocaudal and bilateral mediolateral oblique. Computer Aided Detection was performed with [employer] 1.3 version 9.3. Mammogram Findings: The present examination has been compared to prior imaging studies performed at [facility] on09/25/2012, 09/28/2011 and 05/05/2010. There are scattered fibroglandular densities. There is no suspicious abnormality in either breast. IMPRESSION: Annual screening mammography is recommended. OVERALL FINAL ASSESSMENT: BI-RADS CATEGORY 1: Negative. Requested By: Dillon Nunez M.D. Dictated By: SLIME LANE M.D. on Sep 26 2013 1:02P This document has been electronically signed by: SLIME LANE M.D. on Sep 26 2013 1:02P us Historical Provider MD IMG MAMMO PROCEDURES Heidy l Result from Last 3 Months or Most Recently Relevant to Health Maintenance Insurance [facility] MEDICARE [employer] MEDICARE [facility] [place] [id number] Care Teams Machine Programmer Relationship Specialty Start Date End Date Shine Redd MD [address] [place] [address] PCP - General Family Medicine 07/17/22 Dillon Wang MD [address] [place] [address] [address] [place] [address] Surgeon General Surgery 04/06/23 Beltran Oliva MD [address] [place] [address] [address] [place] [address] Consulting Physician Gastroenterology 04/06/23
--- OUTSIDE RECORDS SUMMARY | 2025-02-28 10:09 | XMS_ITS | Encounter Summary ---
Author Organization [facility] Address [address] [place] [address] Care Team Providers Care Stockroom Selector Name Role Phone Unavailable Primary Care Provider Unavailabl e Prior Encounters Date Type Department Care Team Description 10/27/2019 Converted CPS Chart Documents [facility] [address] [place] [phone] <No scans attached> 10/27/2019 Converted 13x Documents [facility] [place] [address] <No scans attached> 10/27/2019 Converted CPS Chart Documents [facility] [address] [place] [address] <No scans attached> 10/27/2019 Converted 13x Documents [facility] [address] [place] [address] <No scans attached> Plan of Treatment Not on file Procedures Procedure Name Priority Date/Time Associated Diagnosis Comments 20 CEMENT CROWN Routine 02/14/2021 2:00 AM CDT 20 CERECFIRED CROWNPOST Routine 02/15/20 21 2:00 AM CDT 20 LIMITED ORAL EVALUATION - PROBLEM FOCUSED Routine 02/14/2021 2:00 AM CDT NC X-RAY Routine 02/14/2021 2:00 AM CDT ADDITIONAL X-RAY Routine 02/14/2021 2:00 AM CDT SINGLE X-RAY Routine 02/14/2021 2:00 AM CDT 2 CROWN - FULL CAST HIGH HERNANDEZ METAL Routine 10/07/2020 2:00 AM SHOT PACKER 14 CROWN PORC POST Routine 10/07/2020 2: 00 AM SHOT PACKER 28 DO AMALGAM 2 SURFACE Routine 10/07/20 20 2:00 AM SHOT PACKER 12 DO AMALGAM 2 SURFACE Routine 10/07/20 20 2:00 AM SHOT PACKER 13 ENDODONTIC THERAPY, PREMOLAR TOOTH (EXCLUDING FINAL WORSHIP) Routine 10/07/2020 2:00 AM SHOT PACKER 30 IMPLANT CROWN UNIT Routine 10/07/2020 2:00 AM SHOT PACKER 29 IMPLANT CROWN UNIT Routine 10/07/2020 2:00 AM SHOT PACKER 18 IMPLANT CROWN UNIT Routine 10/07/2020 2:00 AM SHOT PACKER 9 IMPLANT CROWN UNIT Routine 10/07/2020 2:00 AM SHOT PACKER 8 IMPLANT CROWN UNIT Routine 10/07/2020 2:00 AM SHOT PACKER 4 IMPLANT CROWN UNIT Routine 10/07/2020 2:00 AM SHOT PACKER 3 IMPLANT CROWN UNIT Routine 10/07/2020 2:00 AM SHOT PACKER 30 IMPLANT Routine 10/07/2020 2:00 AM SHOT PACKER 29 IMPLANT Routine 10/07/2020 2:00 AM SHOT PACKER 18 IMPLANT Routine 10/07/2020 2:00 AM SHOT PACKER 9 IMPLANT Routine 10/07/2020 2:00 AM SHOT PACKER 8 IMPLANT Routine 10/07/2020 2:00 AM SHOT PACKER 4 IMPLANT Routine 10/07/2020 2:00 AM SHOT PACKER 3 IMPLANT Routine 10/07/2020 2:00 AM SHOT PACKER 31 CROWN PFM POST Routine 10/07/2020 2:0 0 AM SHOT PACKER 19 CROWN PFM POST Routine 10/07/2020 2:0 0 AM SHOT PACKER 13 CROWN PFM POST Routine 10/07/2020 2:0 0 AM SHOT PACKER 5 CROWN PFM POST Routine 10/07/2020 2:00 AM SHOT PACKER 32 EXTRACTION, ERUPTED TOOTH REQUIRING REMOVAL OF BONE AND/OR SECTIONING OF TOOTH Routine 10/07/2020 2:00 AM SHOT PACKER 30 EXTRACTION, ERUPTED TOOTH REQUIRING REMOVAL OF BONE AND/OR SECTIONING OF TOOTH Routine 10/07/2020 2:00 AM SHOT PACKER 29 EXTRACTION, ERUPTED TOOTH REQUIRING REMOVAL OF BONE AND/OR SECTIONING OF TOOTH Routine 10/07/2020 2:00 AM SHOT PACKER 18 EXTRACTION, ERUPTED TOOTH REQUIRING REMOVAL OF BONE AND/OR SECTIONING OF TOOTH Routine 10/07/2020 2:00 AM SHOT PACKER 17 EXTRACTION, ERUPTED TOOTH REQUIRING REMOVAL OF BONE AND/OR SECTIONING OF TOOTH Routine 10/07/2020 2:00 AM SHOT PACKER 16 EXTRACTION, ERUPTED TOOTH REQUIRING REMOVAL OF BONE AND/OR SECTIONING OF TOOTH Routine 10/07/2020 2:00 AM SHOT PACKER 15 EXTRACTION, ERUPTED TOOTH REQUIRING REMOVAL OF BONE AND/OR SECTIONING OF TOOTH Routine 10/07/2020 2:00 AM SHOT PACKER 9 EXTRACTION, ERUPTED TOOTH REQUIRING REMOVAL OF BONE AND/OR SECTIONING OF TOOTH Routine 10/07/2020 2:00 AM SHOT PACKER 8 EXTRACTION, ERUPTED TOOTH REQUIRING REMOVAL OF BONE AND/OR SECTIONING OF TOOTH Routine 10/07/2020 2:00 AM SHOT PACKER 4 EXTRACTION, ERUPTED TOOTH REQUIRING REMOVAL OF BONE AND/OR SECTIONING OF TOOTH Routine 10/07/2020 2:00 AM SHOT PACKER 3 EXTRACTION, ERUPTED TOOTH REQUIRING REMOVAL OF BONE AND/OR SECTIONING OF TOOTH Routine 10/07/2020 2:00 AM SHOT PACKER 1 EXTRACTION, ERUPTED TOOTH REQUIRING REMOVAL OF BONE AND/OR SECTIONING OF TOOTH Routine 10/07/2020 2:00 AM SHOT PACKER COMPREHENSIVE ORAL EVALUATION - NEW OR ESTABLISHED PATIENT Routine 10/07/2020 2:00 AM SHOT PACKER ORAL HYGIENE INSTRUCTIONS Routine 2019 2:00 AM SHOT PACKER TOPICAL APPLICATION OF FLUORIDE VARNISH Routine 10/07/2020 2:00 AM SHOT PACKER PROPHYLAXIS - ADULT Routine 10/07/2020 2 :00 AM SHOT PACKER PANORAMIC RADIOGRAPHIC IMAGE Routine 10/07/2020 2:00 AM SHOT PACKER INTRAORAL - COMPREHENSIVE SERIES OF RADIOGRAPHIC IMAGES Routine 10/07/2020 2:00 AM SHOT PACKER INTRAORAL PHOTO Routine 10/07/2020 2:00 AM SHOT PACKER INTRAORAL PHOTO Routine 10/07/2020 2:00 AM SHOT PACKER INTRAORAL PHOTO Routine 10/07/2020 2:00 AM SHOT PACKER INTRAORAL PHOTO Routine 10/07/2020 2:00 AM SHOT PACKER 20 MOD COMPOSITE FILLING Routine 020 2:00 AM SHOT PACKER 7 MDL COMPOSITE FILLING Routine 10/07/20 2:00 AM SHOT PACKER 11 DL COMPOSITE FILLING Routine 10/07/20 20 2:00 AM SHOT PACKER BITEWINGS - TWO RADIOGRAPHIC IMAGES Routine 11/25/2019 3:00 AM EST BITEWINGS - TWO RADIOGRAPHIC IMAGES Routine 11/25/2019 3:00 AM EST 14 CEMENT CROWN Routine 11/14/2019 3:00 AM EST OFFICE VISIT FOR OBSERVATION (DURING REGULARLY SCHEDULED HOURS) - NO OTHER SERVICES PERFORMED Routine 11/14/2019 3:00 AM EST 14 CEMENT CROWN Routine 11/10/2019 3:00 AM EST 14 CORE BUILDUP, INCLUDING ANY PINS WHEN REQUIRED Routine 10/27/2019 3:00 AM EST 14 CERECFIRED CROWNPOST Routine 10/27/19 3:00 AM EST 14 LIMITED ORAL EVALUATION - PROBLEM FOCUSED Routine 10/27/2019 3:00 AM EST Visit Diagnoses Not on file
--- OUTSIDE RECORDS SUMMARY | 2025-02-28 10:09 | XMS_ITS | Clinical Summary ---
Author Organization [facility] Address [address] [place] [address] Care Team Providers Care Mechanical Unit Repairer Name Role Phone Unavailable Primary Care Provider Unavailabl e Social History Tobacco Use Types Packs/Day Years Used Date Smoking Tobacco: Never Assessed Comments Unknown Sex and Gender Information Value Date Recorded Sex Assigned at Not on file Legal Sex Female 4:25 AM PST Gender Identity Not on file Sexual Orientation Not on file Plan of Treatment Health Maintenance Due Date Last Done Comments Meningococcal B Vaccine Aged Out No l onger eligible based on patient's age to complete this topic
--- NOTE | 2025-02-28 10:19 | ED.URI ---
HPI - URI/Sore Throat General Chief Complaint: Upper Respiratory Infection Stated Complaint: Cough/Chest Congestion Time Seen by Provider: 02/28/25 10:19 Source: patient and RN notes reviewed Mode of arrival: ambulatory Limitations: no limitations History of Present Illness HPI Narrative: 79-year-old female presents Express Care complaining of upper respiratory symptoms for approximately 1 week. Patient reports cough, congestion, sore throat, ear pain, chills. Patient reports having a dry nonproductive cough that is worse at night. Patient denies any fevers, body aches, shortness of breath, chest pain, nausea, vomiting, diarrhea. Patient has been taking [id number] DayQuil and NyQuil and says is not helped very much. Patient says she has a history of hypertension and hypothyroidism. Related Data Home Medications ?Medication ?Instructions ?Recorded ?Confirmed ?Last Taken ?Type irbesartan 150 mg tablet mg 02/28/25 Unknown History levothyroxine 100 mcg tablet mcg 02/28/25 Unknown History losartan 50 mg tablet mg 02/28/25 Unknown History meclizine 12.5 mg tablet mg 02/28/25 Unknown History metronidazole 0.75 % topical cream applic topical 02/28/25 Unknown History Allergies Allergy/AdvReac Type Severity Reaction Status Date / Time azithromycin Allergy Intermediate rash Verified 02/28/25 10:28 cefdinir Allergy Intermediate rash Verified 02/28/25 10:28 clindamycin Allergy Intermediate Rash Verified 02/28/25 10:28 levofloxacin Allergy Intermediate rash Verified 02/28/25 10:28 Penicillins Allergy Intermediate Rash Verified 02/28/25 10:28 prednisone Allergy Intermediate Rash Verified 02/28/25 10:28 sulfamethoxazole (From Allergy Intermediate rash Verified 02/28/25 10:28 Bactrim) trimethoprim (From Bactrim) Allergy Intermediate rash Verified 02/28/25 10:28 Review of Systems Review of Systems: CONSTITUTIONAL: Denies fever,, body aches, or sweats. Positive for chills EYES: Denies visual changes, redness, or discharge. ENT: Positive for congestion, sore throat, or otalgia. Denies rhinorrhea. CARDIOVASCULAR: Denies chest pain, palpitations, or edema. RESPIRATORY: Positive for cough. Negative for dyspnea. GASTROINTESTINAL: Denies abdominal pain, nausea, vomiting, or diarrhea. GENITOURINARY: Denies dysuria or hematuria. SKIN: Denies rash or itching. MUSCULOSKELETAL: Denies back pain, joint pain, or myalgia. NEUROLOGIC: Denies headache, numbness, or weakness. PSYCHIATRIC: Denies anxiety or depression. All other systems reviewed are negative, except as documented in HPI. PMFSH Comments At the time of my signature, I reviewed and agree with the nursing past medical, surgical, social, and family history. There is no relevant family history pertinent to the patient complaint. Exam Narrative: GENERAL: This is a well-nourished, well-developed adult, in no apparent distress. They are non ill-appearing, nontoxic appearing. HEAD: normocephalic, atraumatic. EYES: Sclera clear/white. Vision is grossly intact. Conjunctiva normal bilaterally. Extraocular movements intact. EARS: External ears normal, auditory canals clear and without drainage, TMs without erythema or perforation. Hearing grossly intact. NOSE: External nose normal with no obvious nasal discharge, nasal turbinates erythematous, no rhinorrhea. THROAT: Mucous membranes moist, posterior pharynx erythemic without swelling, no exudate. Uvula is midline. Postnasal drip present. NECK: Neck supple, non-tender without lymphadenopathy, masses or thyromegaly. CARDIOVASCULAR: Regular rate and rhythm without murmurs, gallops, or rubs. RESPIRATORY: Clear to auscultation. Breath sounds equal bilaterally. No wheezes, rales, or rhonchi. SKIN: warm, Dry, intact with no suspicious lesions or rash, good texture and turgor. NEURO: awake, alert, and oriented to person, place and time. There were no obvious focal neurologic abnormalities. EXTREMITIES: No joint tenderness, effusion, or edema noted. BACK: Nontender without deformity. Course Course Emergency Course: Portions of this record may have been created with voice recognition software Level of Care: Express Care Visit Vital Signs Vital signs: Vital Signs Temperature 98.4 F 02/28/25 10:04 Pulse Rate 80 02/28/25 10:04 Respiratory Rate 16 02/28/25 10:04 Blood Pressure 166/79 H 02/28/25 10:04 Pulse Oximetry 98 02/28/25 10:04 Oxygen Delivery Room Air 02/28/25 10:04 Temperature 98.4 F 02/28/25 10:04 Pulse Rate 80 02/28/25 10:04 Respiratory Rate 16 02/28/25 10:04 Blood Pressure 166/79 H 02/28/25 10:04 Pulse Oximetry 98 02/28/25 10:04 Oxygen Delivery Room Air 02/28/25 10:04 MDM - URI/Sore Throat MDM Narrative Medical decision making narrative: Chest x-ray negative for any evidence of pneumonia or any acute findings. Rapid strep negative, throat culture pending. Likely viral bronchitis. Will prescribe Medrol Dosepak and Tessalon Perles for cough. Patient reports rash from prednisone but states she has tolerated a Medrol Dosepak in the past. Discussed physical exam findings. Advised supportive measures and signs/symptoms to go to the ER. Pt is appropriate for outpt treatment and f/u. Differential Diagnosis Differential diagnosis: Likely upper respiratory infection, bronchitis and other (Pneumonia) Lab Data Attestation: I reviewed the patient's lab results. Labs: Lab Results 02/28/25 Range/Units 10:33 POC Grp A Strep Screen Negative (Negative) Imaging Data Radiologist's impression: ITS Impressions Chest X-Ray 02/28/25 10:47 IMPRESSION: 1. No acute cardiopulmonary disease. Discharge Plan Discharge Clinical Impression: Bronchitis Patient Disposition: Home Condition: Stable Instructions: Acute Bronchitis (ED) Additional Instructions: Your chest x-ray was negative for any pneumonia or any acute findings. Your rapid strep swab was negative today at [facility]. You will be notified in a few days if the culture comes back positive for strep, and appropriate antibiotics will be called in for you at that time. Your symptoms are likely due to a viral illness, which is not treated with antibiotics. Viral symptoms can be present for up to 7-14 days. Take Tylenol or ibuprofen for fever or pain. Take the steroids as directed. You may take benzonatate as needed for cough. Rest and stay hydrated. Follow up with your PCP in 3-5 days if symptoms are not improving. Go to the ER immediately if you develop difficulty breathing or swallowing Patient Language: Upper Sorbian Prescriptions: New methylprednisolone 4 mg tablets,dose pack See Rx Instructions .ROUTE .COMPLEX Qty: 21 0RF Rx Instructions: for 6 days benzonatate 100 mg capsule 100 mg PO TID PRN (Reason: cough) Qty: 20 0RF No Action losartan 50 mg tablet meclizine 12.5 mg tablet levothyroxine 100 mcg tablet metronidazole 0.75 % cream TOPICAL irbesartan 150 mg tablet Follow-up/Referrals: Ivania,MD Shine [Primary Care Provider] - Time of Disposition: 10:54
[2025-02-28 10:34] LABS: EDSTREPNEGPOS1 Negative (Negative)
== END 2025-02-28 11:07 | disposition home or self-care (01) ==
PROVIDERS: PCP Hospitalist
DX: J40 Bronchitis, not specified as acute or chronic (principal); I10 Essential (primary) hypertension; E03.9 Hypothyroidism, unspecified
CPT/HCPCS: 71046; 87081; 87880; 99203; G0463